=== PATIENT | male | born 1985 | race Caucasian/White ===

== ENCOUNTER 2019-11-14 08:54 | Day surgery (SDC) | payer BC ==
[~2019-11-14 08:54] MED LIST: Propofol 200 MG/20 ML SDV ONE
[2019-11-14] MEDS ORDERED: Sodium Chloride 0.9% 10 ML Syringe FLUSH PRN (09:00)
[2019-11-14] MEDS: Lactated Ringers 1,000 ML IV SCH (09:38)
[2019-11-14] MEDS ORDERED: Propofol 200 MG/20 ML SDV ONE (10:06)
--- NOTE | 2019-11-14 10:08 | PCM.PN ---
- General Info Date of Service: 11/14/19 - Review of Systems Systems Review Comment:: 33-year-old male with longstanding history of acid reflux symptoms here for EGD. He is currently taking Protonix and states that this helps his symptoms significantly. He does note food and juices from the stomach refluxing back up into his throat when he lays down. It is been several years since his last upper endoscopy. His recent history is and physical reviewed and no significant changes are noted. I have discussed the proposed EGD with the patient. He agrees to proceed excepting risks. - Patient Data Vitals - Most Recent: Last Vital Signs Temp 97.1 F 11/14/19 09:14 Pulse 84 11/14/19 09:14 Resp 20 11/14/19 09:14 BP 131/76 11/14/19 09:14 Pulse Ox 95 11/14/19 09:14 Weight - Most Recent: 133.81 kg Med Orders - Current: Current Medications Lactated Ringer's (Ringers, Lactated) 1,000 mls @ 125 mls/hr IV ASDIRECTED ANGELIKA Last Admin: 11/14/19 09:38 Dose: 125 mls/hr Documented by: Sodium Chloride (Saline Flush) 10 ml FLUSH ASDIRECTED PRN PRN Reason: Keep Vein Open Discontinued Medications Propofol (Diprivan 20 Ml) Confirm Administered Dose 400 mg .ROUTE .STK-MED ONE Stop: 11/14/19 08:41 Sepsis Event Note - Focused Exam Vital Signs: Vital Signs Temp Pulse Resp BP Pulse Ox 11/14/19 09:14 97.1 F 84 20 131/76 95 Date Exam was Performed: 11/14/19 Time Exam was Performed: 10:06 - Problem List Review Problem List Initiated/Reviewed/Updated: Yes - My Orders Last 24 Hours: My Active Orders 11/14/19 09:00 Patient Status [ADT] Routine Peripheral IV Care [RC] . DIRECTED Verify Patient Consent Obtain [RC] ASDIRECTED Lactated Ringers [Ringers, Lactated] 1,000 ml IV ASDIRECTED Sodium Chloride 0.9% [Saline Flush] 10 ml FLUSH ASDIRECTED PRN Peripheral IV Insertion Adult [OM.PC] Routine - Assessment Assessment:: Acid reflux - Plan Plan:: EGD
--- NOTE | 2019-11-14 10:41 | PCM.OPNOTE ---
- General Post-Op/Procedure Note Date of Surgery/Procedure: 11/14/19 Operative Procedure(s): EGD with Bx Findings: Localized inflammation in the distal esophagus with tongues of salmon-colored mucosa extending from the Z line proximal to proximally about 2 cm. No stricturing is seen. The remainder of the esophagus stomach and visualized duodenum appeared normal. Pre Op Diagnosis: GERD Post-Op Diagnosis: Reflux esophagitis Anesthesia Technique: MAC Primary Surgeon: Satish Gar Pathology: Biopsies of antrum and distal esophagus EBL in mLs: 3 Complications: None Condition: Good
[2019-11-14 10:53] VITALS: BP 131/96; PULSE 66
--- NOTE | 2019-11-14 15:27 | OR ---
Date of Procedure: 11/14/2019 PREOPERATIVE DIAGNOSIS: Gastroesophageal reflux disease. POSTOPERATIVE DIAGNOSIS: Reflux esophagitis. OPERATION PERFORMED: Esophagogastroduodenoscopy with biopsy. INDICATIONS FOR SURGERY: This 33-year-old male has a history of acid reflux symptoms with gastric juices and food actually coming up into his throat at night when he lies down. He is taking Protonix to control symptoms. It has been several years since his last upper endoscopy and he comes for this exam. FINDINGS: The patient has a localized area of inflammation in the lower portion of his esophagus. The Z-line is at approximately 43 cm and extending proximally about 2 cm from this are several tongues of salmon-colored mucosa consistent with reflux esophagitis. No ulcerations or other abnormalities were seen in the gastric mucosa. The visualized duodenum appears normal. DESCRIPTION OF PROCEDURE: The patient was taken to the operating room. He was given intravenous sedation and with him in the left lateral decubitus position, the Olympus gastroscope was advanced into the oral cavity through a mouth guard. Careful examination of the oropharynx was carried out as the scope was advanced into the esophagus. The scope was then advanced through the esophagus, stomach, and into the duodenum, where examination to the third portion was performed. After examining the duodenum, the scope was withdrawn back into the stomach. Full examination of the gastric mucosa was taken including retroflexed examination of the fundus. Random biopsies of the antrum were taken to rule out H. pylori. The GE junction and distal esophagus area were carefully examined and biopsies were taken at the level of the GE junction and distal esophagus to rule out Joseph's esophagus. The scope was then slowly withdrawn, and examination completed. After removal of the scope, the patient was taken from the operating room in satisfactory condition. ESTIMATED BLOOD LOSS: 3 mL. COMPLICATIONS: None. PROGNOSIS: Good. LIVE Gar MD /[id number]
== END 2019-11-14 11:45 | disposition home or self-care (01) ==
LOC: LL.SDS 08:54
PROVIDERS: ATTEND Surgery
DX: K21.0 Gastro-esophageal reflux disease with esophagitis (principal); K29.70 Gastritis, unspecified, without bleeding; K31.9 Disease of stomach and duodenum, unspecified; E78.5 Hyperlipidemia, unspecified; B35.1 Tinea unguium; E66.9 Obesity, unspecified; F17.210 Nicotine dependence, cigarettes, uncomplicated; Z11.59 Encounter for screening for other viral diseases; Z68.38 Body mass index [BMI] 38.0-38.9, adult; Z79.899 Other long term (current) drug therapy
CPT/HCPCS: J2704; J7120